=== PATIENT | female | born 1990 | race American Indian/Alaskan Native ===

== ENCOUNTER 2016-05-18 12:54 | Emergency (ER) | payer SELFPAY ==
[2016-05-18 13:17] VITALS: BP 114/78
--- NOTE | 2016-05-18 15:50 | Emergency Department Report ---
ED ENT HPI - General Chief complaint: Skin/Abscess/Foreign Body Stated complaint: LEFT CHEEK SWOLLEN/SORE Time Seen by Provider: 05/18/16 15:29 Source: patient Mode of arrival: Ambulatory Limitations: No Limitations - History of Present Illness Initial comments: PT states 2 years ago she squeezed a pimple on her face. PT states after she developed a hard bump and she thought it was a keloid because she has hx of keloids. PT states the bump has not give her problems but 6 days ago, she noticed some swelling around the bump and the bump has become painful. PT states this am when she woke, she had swelling up near her eye, so she decided to seek medical treatment. complaint: other (facial swelling ) -: Gradual, days(s) (6) Location: other (L check ) Severity: moderate Severity scale (0 -10): 6 Quality: aching Consistency: constant Improves with: none Worsens with: other (palpation ) Associated Symptoms: denies: fever, sore throat - Related Data Allergies Allergy/AdvReac Type Severity Reaction Status Date / Time No Known Allergies Allergy Unverified 05/18/16 13:13 ED Dental HPI - General Chief complaint: Skin/Abscess/Foreign Body Stated complaint: LEFT CHEEK SWOLLEN/SORE Time Seen by Provider: 05/18/16 15:29 Source: patient Mode of arrival: Ambulatory Limitations: No Limitations - Related Data Allergies Allergy/AdvReac Type Severity Reaction Status Date / Time No Known Allergies Allergy Unverified 05/18/16 13:13 ED Review of Systems ROS: Stated complaint: LEFT CHEEK SWOLLEN/SORE Other details as noted in HPI Comment: All other systems reviewed and negative Constitutional: malaise. denies: chills, fever Gastrointestinal: denies: abdominal pain, nausea, vomiting Genitourinary: other (lmp [id number]). denies: abnormal menses Skin: change in color ED Past Medical Hx - Past Medical History Previous Medical History?: No - Surgical History Past Surgical History?: No - Social History Smoking Status: Current Every Day Smoker Substance Use Type: Alcohol ED Physical Exam - General Limitations: No Limitations General appearance: alert, in no apparent distress - Head Head exam: Present: atraumatic, normocephalic - Expanded Head Exam Expanded Head exam: Absent: contusion, hematoma - Eye Eye exam: Present: normal appearance, PERRL, EOMI. Absent: conjunctival injection, nystagmus - ENT ENT exam: Present: normal exam, mucous membranes moist, normal external ear exam - Neck Neck exam: Present: normal inspection, full ROM. Absent: tenderness, meningismus, lymphadenopathy - Respiratory Respiratory exam: Present: normal lung sounds bilaterally. Absent: respiratory distress, wheezes - Cardiovascular Cardiovascular Exam: Present: regular rate, normal rhythm, normal heart sounds - GI/Abdominal GI/Abdominal exam: Present: soft. Absent: tenderness - Extremities Exam Extremities exam: Present: normal inspection, full ROM - Back Exam Back exam: Present: normal inspection, full ROM. Absent: tenderness, CVA tenderness (R), CVA tenderness (L) - Neurological Exam Neurological exam: Present: alert, oriented X3 - Psychiatric Psychiatric exam: Present: normal affect, normal mood - Skin Skin exam: Present: warm, dry, intact, erythema, other (L check with black mass that is flucuant and surrounding erythema and tenderness. ) ED Course Vital Signs 05/18/16 13:14 Temperature 98.3 F Pulse Rate 82 Respiratory 20 Rate Blood Pressure 114/78 O2 Sat by Pulse 99 Oximetry - Reevaluation(s) Reevaluation #1: 05/18/16 15:56 Given location of possible abscess, duration of time pt has had facial mass and the fact that pt states she keloids. Pt aware she will need to follow up with [facility] for possible biopsy/ drainage. PT verbalizes understanding. - Pulse Oximetry Interpretation Digit-Finger Initial Pulse Oximetry Readin Actions Taken: none ED Medical Decision Making - Differential Diagnosis cellulitis, abscess, sebaceous cyst Critical Care Time: No Critical care attestation.: If time is entered above; I have spent that time in minutes in the direct care of this critically ill patient, excluding procedure time. ED Disposition Clinical Impression: Facial abscess, Facial cellulitis Disposition: DISCHARGED TO HOME OR SELFCARE Is pt being admited?: No Does the pt Need Aspirin: No Condition: Stable Instructions: Cellulitis (ED) Additional Instructions: No driving or ETOH after taking Tylenol #3 for pain Referrals: PRIMARY CARE, [Primary Care Provider] - 3-5 Days Time of Disposition: 16:02
== END 2016-05-18 16:17 | disposition home or self-care (01) ==
LOC: ED 12:54
DX: L02.01 Cutaneous abscess of face (principal); L03.211 Cellulitis of face
CPT/HCPCS: 99282